=== PATIENT | female | born 1965 | race African-American/Black ===

== ENCOUNTER 2022-12-03 16:56 | Emergency (ER) | payer MEDICAID ==
[~2022-12-03] VITALS: Ht 157.5 cm; Wt 81.0 kg
[2022-12-03 17:31] VITALS: BP 161/95
[2022-12-03] MEDS ORDERED: ACETAMINOPHEN 325MG TABLET PO ONE (19:45)
[2022-12-03] MEDS ORDERED: TOPUD MT (21:30)
== END 2022-12-03 21:10 | disposition home or self-care (01) ==
LOC: ER 16:56
DX: M25.551 Pain in right hip (principal); M79.651 Pain in right thigh; Z98.890 Other specified postprocedural states; V49.9XXA Car occupant (driver) (passenger) injured in unspecified traffic accident, initial encounter; Y93.89 Activity, other specified; Y92.89 Other specified places as the place of occurrence of the external cause; Y99.8 Other external cause status
CPT/HCPCS: 73502; 73552; 99284

== ENCOUNTER 2023-11-23 09:21 | Emergency (ER) | payer MEDICAID, OTHER ==
[~2023-11-23] VITALS: Ht 165.1 cm; Wt 81.6 kg
[~2023-11-23 09:21] MED LIST: TOPUD MT
[2023-11-23 09:28] VITALS: BP 145/78; PULSE 76; RESP 16; O2SAT 98
[2023-11-23 10:30] VITALS: TEMP 98.1
[2023-11-23] MEDS ORDERED: ACETAMINOPHEN 325MG TABLET PO ONE (10:30)
[2023-11-23] MEDS ORDERED: CYCLOBENZAPRINE 10MG TABLET PO ONE (10:30)
[2023-11-23] MEDS ORDERED: LIDO700A15 TP (11:30)
== END 2023-11-23 10:32 | disposition home or self-care (01) ==
LOC: ER 09:21
DX: M54.9 Dorsalgia, unspecified (principal); R07.9 Chest pain, unspecified; Z88.6 Allergy status to analgesic agent; Z98.890 Other specified postprocedural states
CPT/HCPCS: 71045; 81025; 93005; 99283